=== PATIENT | female | born 1960 | race Caucasian/White ===

== ENCOUNTER 2018-01-23 07:35 | Day surgery (SDC) | payer OTHER ==
[~2018-01-23 07:35] MED LIST: Midazolam 1 MG/ML 2 ML SDV ONE; fentaNYL 100 MCG/2 ML SDV ONE
[2018-01-23] MEDS ORDERED: fentaNYL 100 MCG/2 ML SDV IV ONE (07:36)
[2018-01-23] MEDS ORDERED: Midazolam 1 MG/ML 2 ML SDV IV ONE (07:36)
[2018-01-23] MEDS ORDERED: fentaNYL 100 MCG/2 ML SDV IVPUSH ONE ×2 (08:38→08:39)
[2018-01-23] MEDS ORDERED: Midazolam 1 MG/ML 2 ML SDV IVPUSH ONE ×2 (08:40→08:41)
[2018-01-23] MEDS ORDERED: Lactated Ringers 1,000 ML IV SCH (08:45)
--- NOTE | 2018-01-23 15:41 | OR ---
DATE: 01/23/2018 PREOPERATIVE DIAGNOSIS: Screening colonoscopy. POSTOPERATIVE DIAGNOSIS: Screening colonoscopy. PROCEDURE: Total colonoscopy. ANESTHESIA: Conscious sedation with IV Versed and fentanyl. SPECIMEN: None. OPERATIVE FINDINGS: Normal colonoscopy. RECOMMENDATION: Followup colonoscopy for screening in 10 years. INDICATION FOR PROCEDURE: This 57-year-old female has not had a prior colonoscopy. She is here for initial screening. DESCRIPTION OF PROCEDURE: After adequate preparation, a colonoscope was inserted into the rectum. This was easily passed all the way to the cecum. Confirmation of the cecum was made by visualization of the ileocecal valve, the light shining through the right lower quadrant, and by palpation. Photograph of the ileocecal valve was taken. The bowel prep was excellent. On withdrawal of the scope, a good examination of the colon was accomplished. She has no masses, polyps, bleeding sites, colitis, or diverticula. Anal and rectal examination are normal. Air was suctioned from the colon, and the scope removed. [facility] /[id number]
== END 2018-01-23 10:50 | disposition home or self-care (01) ==
LOC: DL.ENDO 07:35
PROVIDERS: ATTEND Surgery
DX: Z12.11 Encounter for screening for malignant neoplasm of colon (principal)
CPT/HCPCS: 45378; J2250; J3010; J7120

== ENCOUNTER 2020-01-29 17:53 | Emergency (ER) | payer BC, OTHER ==
[2020-01-29] MEDS ORDERED: Cyclobenzaprine 10 MG Tab PO ONE (17:54)
[2020-01-29] MEDS ORDERED: Ondansetron 4 MG Tab.DIS PO ONE (17:54)
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
[2020-01-29] MEDS ORDERED: Ondansetron 4 MG Tab.DIS ONE (19:49)
[2020-01-29] MEDS ORDERED: Cyclobenzaprine 10 MG Tab ONE (19:50)
== END 2020-01-29 20:00 | disposition home or self-care (01) ==
LOC: DL.ED 17:53
DX: S16.1XXA Strain of muscle, fascia and tendon at neck level, initial encounter (principal); Z79.899 Other long term (current) drug therapy; V43.53XA Car driver injured in collision with pick-up truck in traffic accident, initial encounter
CPT/HCPCS: 72125; 99284; A9270